=== PATIENT | male | born 1955 | race Caucasian/White ===

== ENCOUNTER → 2016-07-18 | Outpatient (CLI) | payer BC, OTHER ==
--- NOTE | 2016-07-18 14:28 | REP ---
Clinical: Pain. Technique: AP, lateral, bilateral oblique views of the right hand. Findings: Moderate osteoarthritic degenerative changes at the first and second carpometacarpal joints noted. No acute fracture dislocation. Impression: Arthritic changes primarily involving the first and second carpometacarpal joints Signed by Jerad Mendenhall MD 07/18/2016 02:19 P
--- NOTE | 2016-07-18 14:29 | REP ---
Clinical: Pain. Technique: AP, lateral, bilateral oblique views of the right hand. Findings: Moderate degenerative changes at the first and second carpometacarpal joints appreciated subtle cystic changes at the heads of the third and fourth carpal bones as well as the head of the fourth proximal phalanx may reflect underlying arthritides. No significant osteophytosis. No acute fracture dislocation. Impression: Suspected degenerative changes as noted above. Signed by Jerad Mendenhall MD 07/18/2016 02:21 P
== END ==
LOC: M RAD 13:49
PROVIDERS: ATTEND Physician Assistant
DX: M19.041 Primary osteoarthritis, right hand (principal)

== ENCOUNTER → 2017-08-15 | Outpatient (REF) | payer OTHER ==
[2017-08-15 12:25] LABS: ALBUMIN 3.6 GM/DL (3.2-5.2); ALBUMIN/GLOBULIN RATIO 1.13 (1.00-1.93); ALKALINE PHOSPHATASE 74 U/L (45-117); ALT/SGPT 25 U/L (12-78); ANION GAP 6 MEQ/L (8-16); AST/SGOT 17 U/L (7-37); BILIRUBIN,TOTAL 0.5 MG/DL (0.2-1.0); BLOOD UREA NITROGEN 15 MG/DL (7-18); CALCIUM LEVEL 8.9 MG/DL (8.8-10.2); CARBON DIOXIDE LEVEL 31 MEQ/L (21-32); CHLORIDE LEVEL 106 MEQ/L (98-107); CHOLESTEROL LEVEL 192 MG/DL (<200); CHOLESTEROL RISK RATIO 3.254 (<5); CREATININE FOR GFR 0.96 MG/DL (0.70-1.30); GLOMERULAR FILTRATION RATE > 60.0 (>49); GLUCOSE, FASTING 84 MG/DL (70-100); HDL CHOLESTEROL 59 MG/DL (>40); LDL CHOLESTEROL 115.6 MG/DL (<100); NON-HDL-C 133 MG/DL; POTASSIUM SERUM 4.4 MEQ/L (3.5-5.1); SODIUM LEVEL 143 MEQ/L (136-145); TOTAL PROTEIN 6.8 GM/DL (6.4-8.2); TRIGLYCERIDES LEVEL 87 MG/DL (<150)
== END ==
LOC: M SFHCCLAY 07:39
DX: I10 Essential (primary) hypertension (principal); N40.1 Benign prostatic hyperplasia with lower urinary tract symptoms; N52.9 Male erectile dysfunction, unspecified; E78.5 Hyperlipidemia, unspecified

== ENCOUNTER → 2018-02-05 | Outpatient (REF) | payer OTHER ==
[2018-02-05 15:08] LABS: BASO # 0.1 10^3/uL (0.0-0.2); BASO % 1.1 % (0.0-1.0); EOS # 0.2 10^3/uL (0.0-0.50); EOS % 3.1 % (0.0-3.0); HEMATOCRIT 46.3 % (42.0-52.0); HEMOGLOBIN 15.3 g/dl (13.5-17.5); IMMATURE GRANULOCYTE % 0.5 % (0-3.0); LYMPH # 1.3 10^3/uL (1.5-4.5); LYMPH % 20.1 % (24.0-44.0); MEAN CORPUSCULAR HEMOGLOBIN 31.1 pg (27.0-33.0); MEAN CORPUSCULAR VOLUME 94.1 fl (80.0-96.0); MONO # 0.8 10^3/uL (0.0-0.8); MONO % 11.8 % (0.0-5.0); NEUTROPHILS # 4.1 10^3/uL (1.8-7.7); NEUTROPHILS % 63.4 % (36.0-66.0); PLATELET COUNT, AUTOMATED 258 10^3/uL (150-450); RED BLOOD COUNT 4.92 10^6/uL (4.30-6.10); RED CELL DISTRIBUTION WIDTH 13.4 % (11.5-14.5); WHITE BLOOD COUNT 6.5 10^3/uL (4.0-10.0)
[2018-02-05 15:34] LABS: ALBUMIN 3.6 GM/DL (3.2-5.2); ALBUMIN/GLOBULIN RATIO 1.13 (1.00-1.93); ALKALINE PHOSPHATASE 59 U/L (45-117); ALT/SGPT 28 U/L (12-78); ANION GAP 6 MEQ/L (8-16); AST/SGOT 18 U/L (7-37); BILIRUBIN,TOTAL 0.4 MG/DL (0.2-1.0); BLOOD UREA NITROGEN 20 MG/DL (7-18); CALCIUM LEVEL 9.2 MG/DL (8.8-10.2); CARBON DIOXIDE LEVEL 28 MEQ/L (21-32); CHLORIDE LEVEL 108 MEQ/L (98-107); CHOLESTEROL LEVEL 223 MG/DL (<200); CREATININE FOR GFR 1.02 MG/DL (0.70-1.30); FREE T4 0.97 NG/DL (0.76-1.46); GLOMERULAR FILTRATION RATE > 60.0 (>49); GLUCOSE, FASTING 95 MG/DL (70-100); HDL CHOLESTEROL 65 MG/DL (>40); LDL CHOLESTEROL 144 MG/DL (<100); NON-HDL-C 158 MG/DL; POTASSIUM SERUM 4.2 MEQ/L (3.5-5.1); PSA SCREENING 0.72 NG/ML (< 4.0); SODIUM LEVEL 142 MEQ/L (136-145); TOTAL PROTEIN 6.8 GM/DL (6.4-8.2); TRIGLYCERIDES LEVEL 69 MG/DL (<150)
== END ==
LOC: M SFHCCLAY 07:08
DX: I10 Essential (primary) hypertension (principal); N52.9 Male erectile dysfunction, unspecified; N40.1 Benign prostatic hyperplasia with lower urinary tract symptoms; R79.89 Other specified abnormal findings of blood chemistry; E78.5 Hyperlipidemia, unspecified

== ENCOUNTER → 2018-02-26 | Outpatient (REF) | payer OTHER ==
[2018-02-26 12:10] LABS: BASO # 0.1 10^3/uL (0.0-0.2); EOS # 0.1 10^3/uL (0.0-0.50); HEMATOCRIT 45.2 % (42.0-52.0); HEMOGLOBIN 15.5 g/dl (13.5-17.5); IMMATURE GRANULOCYTE % 0.3 % (0-3.0); LYMPH # 1.1 10^3/uL (1.5-4.5); MEAN CORPUSCULAR HEMOGLOBIN 31.1 pg (27.0-33.0); MEAN CORPUSCULAR HGB CONC 34.3 g/dl (32.0-36.5); MEAN CORPUSCULAR VOLUME 90.6 fl (80.0-96.0); MONO # 0.7 10^3/uL (0.0-0.8); MONO % 10.3 % (0.0-5.0); NEUTROPHILS % 71.4 % (36.0-66.0); PLATELET COUNT, AUTOMATED 253 10^3/uL (150-450); RED BLOOD COUNT 4.99 10^6/uL (4.30-6.10); RED CELL DISTRIBUTION WIDTH 13.2 % (11.5-14.5)
[2018-02-26 13:13] LABS: ERYTHROCYTE SEDIMENTATION RATE 4 mm/hr (0-20)
[2018-02-26 13:49] LABS: C REACTIVE PROTEIN QUANTITATIV < 0.30 MG/DL (0.00-0.30)
[2018-02-26 13:49] LABS: RHEUMATOID FACTOR QUANT < 10.0 IU/ML (<15.0)
[2018-02-28 00:06] LABS: ANTINUCLEAR ANTIBODIES DIRECT Negative (Negative); Lyme Disease IgG/IgM Antibodie <0.91 ISR (0.00-0.90); Lyme Disease IgM Ab Quantitati <0.80 index (0.00-0.79)
== END ==
LOC: M LABDRAW1 11:58
DX: M16.11 Unilateral primary osteoarthritis, right hip (principal)

== ENCOUNTER → 2018-04-06 | Outpatient (REF) | payer OTHER ==
[2018-04-06 13:40] LABS: RHEUMATOID FACTOR QUANT < 10.0 IU/ML (<15.0)
[2018-04-06 13:40] LABS: C REACTIVE PROTEIN QUANTITATIV 0.57 MG/DL (0.00-0.30)
[2018-04-06 13:41] LABS: BASO # 0.1 10^3/uL (0.0-0.2); BASO % 1.1 % (0.0-1.0); EOS # 0.1 10^3/uL (0.0-0.50); EOS % 1.2 % (0.0-3.0); HEMATOCRIT 47.8 % (42.0-52.0); HEMOGLOBIN 15.8 g/dl (13.5-17.5); IMMATURE GRANULOCYTE % 0.3 % (0-3.0); LYMPH # 1.1 10^3/uL (1.5-4.5); LYMPH % 15.2 % (24.0-44.0); MEAN CORPUSCULAR HEMOGLOBIN 30.8 pg (27.0-33.0); MEAN CORPUSCULAR HGB CONC 33.1 g/dl (32.0-36.5); MEAN CORPUSCULAR VOLUME 93.2 fl (80.0-96.0); MONO # 0.8 10^3/uL (0.0-0.8); MONO % 10.6 % (0.0-5.0); NEUTROPHILS # 5.3 10^3/uL (1.8-7.7); NEUTROPHILS % 71.6 % (36.0-66.0); PLATELET COUNT, AUTOMATED 292 10^3/uL (150-450); RED BLOOD COUNT 5.13 10^6/uL (4.30-6.10); RED CELL DISTRIBUTION WIDTH 13.2 % (11.5-14.5); WHITE BLOOD COUNT 7.4 10^3/uL (4.0-10.0)
[2018-04-06 14:02] LABS: ERYTHROCYTE SEDIMENTATION RATE 3 mm/hr (0-20)
[2018-04-08 00:06] LABS: ANTINUCLEAR ANTIBODIES DIRECT Negative (Negative); Lyme Disease IgG/IgM Antibodie <0.91 ISR (0.00-0.90); Lyme Disease IgM Ab Quantitati <0.80 index (0.00-0.79)
== END ==
LOC: M LABDRAW1 13:10
DX: M16.11 Unilateral primary osteoarthritis, right hip (principal)

== ENCOUNTER → 2018-08-11 | Outpatient (CLI) | payer BC ==
--- NOTE | 2018-08-12 03:27 | REP ---
Clinical: Primary hypertension . Comparison: None . Technique: PA and lateral. Findings: The mediastinum and cardiac silhouette are normal. The lung poole are clear and without acute consolidation, effusion, or pneumothorax. The skeletal structures are intact and normal. Impression: 1. No acute cardiopulmonary process.
== END ==
LOC: M CLY 08:35
PROVIDERS: ATTEND Nurse Practitioner Family
DX: I10 Essential (primary) hypertension (principal)

== ENCOUNTER 2018-10-06 10:52 | Inpatient (IN) | payer BC, OTHER ==
--- NOTE | 2018-09-29 14:04 | HPE ---
DATE OF ADMISSION: 10/06/2018 HISTORY OF PRESENT ILLNESS: This is a pleasant 63-year-old male with continuing symptomatic left knee osteoarthritis. He has consented for left total knee arthroplasty per Dr. Kiko Carlin. Medical optimization was achieved per CALIN Blackmon. X-rays are consistent with advanced osteoarthritis. ALLERGIES: None known to drugs. MEDICATIONS LIST INCLUDES: - lisinopril 20 mg tablet one orally once a day - aspirin 81 mg tablet chewable one orally once a day - chlorthalidone 25 mg tablet, 1/2 tablet orally once a day. - Cialis 5 mg tablet 1 tablet orally once a day. - atorvastatin calcium 20 mg tablet 1 tablet orally once a day. - lisinopril 20 mg tablet 1 tablet orally once a day. PAST MEDICAL HISTORY INCLUDES: Bilateral knee osteoarthritis. Right hip osteoarthritis. Hypertension. Hyperlipidemia. Gastroesophageal reflux disease (GERD). Erectile dysfunction (ED). Shingles. Benign prostatic hypertrophy (BPH). PAST SURGICAL HISTORY: Colonoscopy Dr. Alvarez 2007. Right knee arthroscopic Dr. Barrientos 1988. Right ankle tendinopathy repair Dr. Mejia . Colonoscopy with polyps removed 2012. FAMILY HISTORY: Father, myocardial infarction (PA) diagnosed with heart disease. Mother 80 years old, macular degeneration, chronic obstructive pulmonary disease (COPD). Three brothers, one sister healthy. Three sons, one daughter healthy. SOCIAL HISTORY: He is chewing tobacco 1/2 can per day. No vapor or cigarettes. Denies illicit drugs. REVIEW OF SYSTEMS: Denies chest pain, shortness of breath, dyspnea on exertion, fever, chills, malaise, upper respiratory or urinary tract symptoms. PHYSICAL EXAMINATION: Blood pressure 130/79, pulse 70, temperature 97.8, height 74 inches, weight 240 pounds 1 ounce. BMI 30.80. Respiration 16. He ambulates slow steady without overt antalgia. He has favoring about the right lower extremity. Left knee varus osteoarthritic line with positive medial joint line tenderness. Crepitance is noted on the knee through flexion/extension 0 past 90. Bilateral lower extremities are intact. Benign noninfectious looking. Bowels soft, nontender times four. Chest rises symmetrically. Regular rate and rhythm. Lungs: Clear to auscultation. Neck: Supple. Normocephalic. Labs were reviewed acquired 08/31/2018: BUN was 24, anion gap 5. Prothrombin time 14.5, blood type O positive, AB screen negative, GFR greater than 60. EKG sinus rhythm, nonspecific intraventricular conduction. Though I cannot read who signed off on it, it was through [employer] by Felice and signed off on 08/11/2018. Chest x-ray: Unremarkable, service date 08/11/[address] Mendenhall. No acute cardiopulmonary process. IMPRESSION: 1. Symptomatic left knee osteoarthritis. 2. Patient consented for left total knee arthroplasty per Dr. Kiko Carlin. 3. Medical optimization per CALIN Blackmon. 4. On-call to operating room (OR) 2 grams IV Kefzol in OR. 5. Sequential compression devices (SCDs) and thromboembolic deterrent stockings (TEDS) in OR. MEDICATIONS INDICATION 98. MTDD
[~2018-10-06] VITALS: Ht 188 cm; Wt 108.4 kg
[~2018-10-06 10:52] MED LIST: ASPI81TA85 PO; ATOR1TAB21 PO; CHLO125TA PO; CIAL5TAB PO; LISI-538 PO; LR 1,000 ML IV ONE
[2018-10-06] MEDS ORDERED: LIDOCAINE 2% INJ 100 MG/5 ML SDV (FOR ANES.) As Ordered ONE (11:31)
[2018-10-06] MEDS ORDERED: PROPOFOL 200 MG/20 ML VIAL As Ordered ONE ×4 (11:31→15:25)
[2018-10-06] MEDS ORDERED: ONDANSETRON 4MG/2ML VIAL (J2405) As Ordered ONE (11:32)
[2018-10-06] MEDS ORDERED: MIDAZOLAM INJ 2 MG/2 ML VIAL (J2250) As Ordered ONE ×2 (11:33→12:43)
[2018-10-06] MEDS ORDERED: VANCOMYCIN 1000 MG/20 ML VIAL (J3370) As Ordered ONE (12:09)
--- NOTE | 2018-10-06 12:13 | IPN ---
DATE: 10/06/2018 Patient seen and examined preoperatively. He wished to go ahead with a left total knee arthroplasty. He understands the nature of procedure, the risks of bleeding, infection, damage to nerves, vessels, persistent pain, wear loosening, blood clots, medical problems, , among others. He wished to proceed. Preop clearance was obtained.
[2018-10-06] MEDS ORDERED: VANCOMYCIN HCL 1,000 MG, VIAL MATE ADAPTER 1 EACH in D5W 250 ML IV ONE (12:30)
[2018-10-06] MEDS ORDERED: fentaNYL 100 MCG/2 ML INJECTION (J3010) As Ordered ONE (12:43)
[2018-10-06] MEDS ORDERED: BUPIVACAINE HCL 0.25% 10 ML VIAL As Ordered ONE (12:55)
[2018-10-06] MEDS ORDERED: BUPIVACAINE HCL 0.25% 30 ML VIAL As Ordered ONE (12:56)
[2018-10-06] MEDS ORDERED: TRANEXAMIC ACID 100 MG/ML 10ML VIAL As Ordered ONE (12:59)
[2018-10-06] MEDS ORDERED: ceFAZolin 1GM INJ (J0690 PER 500MG) As Ordered ONE (12:59)
[2018-10-06] MEDS ORDERED: EPINEPHrine INJ 1 MG/ML 1ML AMP As Ordered ONE (13:00)
[2018-10-06] MEDS ORDERED: BUPIVACAINE LIPOSOME/PF 1.3% 20ML VIAL (13.3MG/ML)(EXPAREL)(C9290 PER1MG) As Ordered ONE (13:00)
[2018-10-06] MEDS ORDERED: ePHEDrine SULFATE 25 MG/5 ML(5MG/ML) SYRINGE As Ordered ONE (14:28)
[2018-10-06] MEDS ORDERED: BUPIVACAINE HCL 0.5% 30 ML VIAL As Ordered ONE (14:52)
[2018-10-06] MEDS ORDERED: LIDOCAINE 1% MDV 20ML VIAL ONE (15:44)
[2018-10-06] MEDS ORDERED: dexameTHASONE 10 MG/1 ML VIAL PRES.FREE (J1100) ONE (15:44)
[2018-10-06] MEDS ORDERED: METOCLOPRAMIDE INJ 10MG/2ML VIAL (J2765) IV PRN (16:15)
[2018-10-06] MEDS ORDERED: FLEET ENEMA PR PRN (16:15)
[2018-10-06] MEDS ORDERED: ACETAMINOPHEN TAB 650MG DOSE (2X325MG) PO PRN (16:15)
[2018-10-06] MEDS ORDERED: fentaNYL 100 MCG/2 ML INJECTION (J3010) IV PRN (16:15)
[2018-10-06] MEDS ORDERED: LR 1,000 ML IV SCH (16:15)
[2018-10-06] MEDS ORDERED: oxyCODONE 5MG TAB PO PRN (16:15)
[2018-10-06] MEDS: LR 1,000 ML IV SCH (16:15)
[2018-10-06] MEDS ORDERED: PROMETHAZINE INJ 25 MG/ML VIAL (J2550) IV PRN (16:15)
[2018-10-06] MEDS ORDERED: ONDANSETRON 4MG/2ML VIAL (J2405) IV PRN (16:15)
[2018-10-06] MEDS ORDERED: MORPHINE 4 MG/ML 1ML VIAL/SYRINGE (J2270) IV PRN ×2 (16:15)
--- NOTE | 2018-10-06 16:47 | REP ---
Portable left knee two views: There is a total knee arthroplasty with the components tightly applied and in satisfactory positions alignment. There is an intra-articular postsurgical air-fluid level. Skin paty are incidentally identified. Electronically Signed by Rj Best MD 10/06/2018 04:38 P
--- NOTE | 2018-10-06 18:17 | RO ---
DATE OF PROCEDURE: 10/06/2018 PREOPERATIVE DIAGNOSIS: Left knee osteoarthritis. POSTOPERATIVE DIAGNOSIS: Left knee osteoarthritis. PROCEDURE: Left total knee arthroplasty using an Attune rotating platform posterior stabilized size 7 femur, size 6 tibial tray, 7 polyethylene, and a 38 patellar button. SURGEON: Dr. Kiko Carlin LASER ENGRAVER: Ildefonso Morrow ANESTHESIA: Spinal. ESTIMATED BLOOD LOSS: Less than 50 mL. COMPLICATIONS: None. INDICATIONS: This is a 63-year-old gentleman who has had gradually worsening left knee pain with severe arthritis. He wished to go ahead with knee replacement. He understood the nature and risk. Preop clearance was obtained. DESCRIPTION OF PROCEDURE: The patient was taken to the operating room, placed in the supine position after spinal anesthesia was induced. Left lower extremity was prepped and draped in the usual sterile fashion. Tourniquet was inflated after a time-out was performed. I then created a longitudinal incision over the anterior aspect of the knee and sharp dissection was carried down through subcutaneous tissue. I then performed a medial parapatellar arthrotomy per routine. He did have fairly extensive prepatellar bursitis and a large but empty sac that I excised just for concern that that would be a recurring issue. I did this with cautery and a scissor. I then everted the patella, flexed the knee up using the canal initiating reamer on the femoral side. The femoral guide was then inserted and set at 5 of valgus, 9 mm cut. This was pinned in place. The distal femoral cut was made as I protected soft tissues. I then sized the femur to be a 7, and the cutting block was secured, the remaining cuts were made. I also made the sulcus cut. I then prepared the tibia. The tibial alignment guide was placed, appropriate amount of slope and valgus and then pinned in place at 4 mm off the low side. I checked the external alignment and then made this proximal tibia cut. I then used the insurance office manager to remove soft tissue and osteophytes from either side of the knee. I did do a little bit more extensive medial release. I then tried spacer blocks and felt that it was a little too tight with a 6, and I decided actually to take an extra 2 mm off the tibial side, probably because the bone was so dense throughout the case that I felt that the proximal medial tibia may have skived a little bit with the saw blade, so I made this second cut, very pleased with the cut. Soft tissue balance was excellent at this point. A 7 spacer seemed to be very appropriate. I then prepared the tibia with the drill and broach. Trial components were placed, posterior cruciate ligament (PCL) was still intact, but I was not pleased with the roll back. Once we put the trial components in, the tibia was shifting forward, and I felt that the PCL was too tight, so I elected to go with a posterior stabilized knee. So the box cut was then made on the femoral side and trial components were then placed and the size 7 polyethylene, posterior stabilized and was very pleased with the alignment and position of these components. Excellent soft tissue balance. Excellent range of motion. Excellent roll back. I then freehand cut the patella removing about 7 mm of bone, sized to be a 38. Drill holes were placed in the femur and the patella, and the grants assistant prepared the bone cement in the modern technique as I removed the components, irrigated copiously, placed the Exparel in the deep tissues. Dried the bony surfaces, cemented on all three components, placed in the polyethylene, bring the knee out in extension, removing excess bone cement. TXA solution was placed deep in the wound and then copious irrigation was again performed. I had to carefully irrigate and dried the bony surfaces prior to cementing. Once the cement had hardened, I removed the patellar clamp. The patella tracked very nicely. I closed the deep layer with a combination of #1 Vicryl suture and a running Stratafix suture, closed the subcu with #2-0 Vicryl, the skin with paty. Sterile dressing was applied. Tourniquet was deflated. He was taken to the recovery room in stable condition. There were no known complications. The plan will be routine postop. The grants assistant was instrumental in holding retractors and assisted in mixing the bone cement. He made one of the bone cuts under my direct supervision and assisting in wound closure.
[2018-10-06] MEDS: PERCOCET 5MG/325MG TAB PO PRN (18:31)
[2018-10-06 18:45] VITALS: BP 147/100
[2018-10-06 19:15] VITALS: BP 147/98
[2018-10-06 23:15] VITALS: BP 151/86
--- NOTE | 2018-10-06 23:27 | IPNPDOC ---
Subjective Date Seen The patient was seen on 10/06/18. Subjective Chief Complaint/HPI Mr. Martínez is status post left total knee arthroplasty. His only complaint to me is that the spinal anesthesia has worn off and he is beginning to feel the ache in his leg now. Constitutional: Denies: Chills, Fever Pulmonary: Denies: Dyspnea, Cough Cardiovascular: Denies: Chest Pain, Palpitations Gastrointestinal: Denies: Nausea, Vomiting Psych: Reports: Mood Normal Objective Physical Examination General Exam: Positive: Alert, Cooperative (laying in his bed when I entered the room), No Acute Distress Eye Exam: Positive: Conjunctiva & lids normal; Negative: Sclera icteric ENT Exam: Positive: Mucous membr. moist/pink Neck Exam: Negative: Lymphadenopathy Chest Exam: Positive: Clear to auscultation, Normal air movement Heart Exam: Positive: Rate Normal, Normal S1, Normal S2; Negative: Murmurs Abdomen Exam: Positive: Normal bowel sounds, Soft; Negative: Tenderness Extremity Exam: Positive: Other (left knee bandage is clean dry and intact) Psych Exam: Positive: Mood NL, Oriented x 3 A-FIB/CHADSVASC A-FIB History Current/History of A-Fib/PAF?: No Assessment /Plan Problems (1) Status post total left knee replacement Problem Text: Today's the day of surgery. He is admitted under orthopedics who manage his: pain control, rehabilitation, bowel care, anticoagulation. (2) Hypertension Status: Chronic Response to Treatment: Stable Discussed With: Patient Problem Specific Plan: Monitor Clinically Problem Text: His blood pressure is running a little high after his surgery. I resumed his home medications starting tomorrow morning. Monitor. (3) Hyperlipidemia Status: Chronic Problem Text: I resumed his statin. Plan/VTE VTE Prophylaxis Ordered?: Yes (anticoagulated per orthopedics) VS, I&O, 24H, Fishbone Vital Signs/I&O Vital Signs Date Time Temp Pulse Resp B/P (MAP) Pulse Ox O2 Delivery O2 Flow Rate FiO2 10/06/18 21:40 20 10/06/18 19:15 98.8 60 147/98 (114) 98 10/06/18 16:10 2 Donny Farias MD October 06, 2018 11:27 pm
[2018-10-07] MEDS: PERCOCET 5MG/325MG TAB PO PRN ×3 (00:42→12:25)
[2018-10-07] MEDS ORDERED: VANCOMYCIN HCL 1,000 MG, VIAL MATE ADAPTER 1 EACH in D5W 250 ML IV ONE (01:00)
[2018-10-07 03:15] VITALS: BP 133/80
[2018-10-07] MEDS: LR 1,000 ML IV SCH (05:12)
[2018-10-07 05:46] LABS: HEMATOCRIT 39.5 % (42.0-52.0); HEMOGLOBIN 13.1 g/dl (13.5-17.5); MEAN CORPUSCULAR HEMOGLOBIN 30.1 pg (27.0-33.0); MEAN CORPUSCULAR HGB CONC 33.2 g/dl (32.0-36.5); MEAN CORPUSCULAR VOLUME 90.8 fl (80.0-96.0); PLATELET COUNT, AUTOMATED 268 10^3/uL (150-450); RED BLOOD COUNT 4.35 10^6/uL (4.30-6.10); WHITE BLOOD COUNT 12.3 10^3/uL (4.0-10.0)
[2018-10-07] MEDS ORDERED: ONDANSETRON 4 MG TAB (S0181) PO PRN (06:00)
[2018-10-07 06:19] LABS: BLOOD UREA NITROGEN 14 MG/DL (7-18); CALCIUM LEVEL 8.1 MG/DL (8.8-10.2); CARBON DIOXIDE LEVEL 27 MEQ/L (21-32); CHLORIDE LEVEL 105 MEQ/L (98-107); CREATININE FOR GFR 0.99 MG/DL (0.70-1.30); GLOMERULAR FILTRATION RATE > 60.0 (>49); GLUCOSE, FASTING 104 MG/DL (70-100); POTASSIUM SERUM 3.7 MEQ/L (3.5-5.1); SODIUM LEVEL 138 MEQ/L (136-145)
[2018-10-07 07:15] VITALS: BP 144/92
[2018-10-07] MEDS ORDERED: XARE10TA PO (07:15)
[2018-10-07] MEDS ORDERED: PERC5TAB12 PO (07:15)
--- NOTE | 2018-10-07 07:45 | IPNPDOC ---
Subjective Date Seen The patient was seen on 10/07/18. Subjective Chief Complaint/HPI Patient reports to be feeling well. He walked the halls yesterday. He reports some pain in knee and did not sleep the best last night. He is ready for PT today. He offers no concerns. Constitutional: Denies: Chills, Fever Pulmonary: Denies: Dyspnea, Cough, Pleuritic Chest Pain Cardiovascular: Denies: Chest Pain, Palpitations, Orthopnea, Edema Gastrointestinal: Denies: Nausea, Vomiting, Constipation Psych: Reports: Mood Normal Objective Physical Examination General Exam: Positive: Alert, Cooperative (laying in his bed when I entered the room), No Acute Distress Eye Exam: Positive: Conjunctiva & lids normal; Negative: Sclera icteric ENT Exam: Positive: Mucous membr. moist/pink Neck Exam: Negative: Lymphadenopathy Chest Exam: Positive: Clear to auscultation, Normal air movement Heart Exam: Positive: Rate Normal, Normal S1, Normal S2; Negative: Murmurs Abdomen Exam: Positive: Normal bowel sounds, Soft; Negative: Tenderness Extremity Exam: Positive: Other (left knee bandage is clean dry and intact) Psych Exam: Positive: Mood NL, Oriented x 3 A-FIB/CHADSVASC A-FIB History Current/History of A-Fib/PAF?: No Assessment /Plan Problems (1) Status post total left knee replacement Problem Text: 10/07/18: Post op Day #1. PT scheduled for today. Ortho will continue to manage his pain, rehab, bowel care and anticoagulation Today's the day of surgery. He is admitted under orthopedics who manage his: pain control, rehabilitation, bowel care, anticoagulation. (2) Hypertension Status: Chronic Response to Treatment: Stable Discussed With: Patient Problem Specific Plan: Monitor Clinically Problem Text: 10/07/18: Pressures stable. He will resume his home medications today. We will continue to monitor His blood pressure is running a little high after his surgery. I resumed his home medications starting tomorrow morning. Monitor. (3) Hyperlipidemia Status: Chronic Problem Text: I resumed his statin. Plan/VTE VTE Prophylaxis Ordered?: Yes (anticoagulated per orthopedics) Plan Family Medicine Attending Note: I saw and examined Mr. Martínez, discussed with Jemma Ellison DNP. Agree with her note as documented. He reports he had a tough night, but is ready to engage in therapy. 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) VS, I&O, 24H, Fishbone Vital Signs/I&O Vital Signs Date Time Temp Pulse Resp B/P (MAP) Pulse Ox O2 Delivery O2 Flow Rate FiO2 10/07/18 07:15 97.9 71 18 144/92 (109) 96 10/06/18 16:10 2 I&O- Last 24 Hours up to 6 AM 10/07/18 06:00 Intake Total 3700 ml Output Total 1100 ml Balance 2600 ml Laboratory Data 24H LABS Laboratory Tests 2 10/07/18 05:34: Nucleated Red Blood Cells % (auto) 0.0, Anion Gap 6L, Glomerular Filtration Rate > 60.0, Blood Urea Nitrogen 14, Creatinine 0.99, Sodium Level 138, Potassium L evel 3.7, Chloride Level 105, Carbon Dioxide Level 27, Calcium Level 8.1L CBC/BMP Laboratory Tests 10/07/18 05:34 Red Blood Count 4.35, Mean Corpuscular Volume 90.8, Mean Corpuscular Hemoglobin 30.1, Mean Corpuscular Hemoglobin Concent 33.2, Red Cell Distribution Width 13.2, Calcium Level 8.1 L JEMMA ELLISON October 07, 2018 7:45 am Donny Farias MD October 07, 2018 9:10 pm
[2018-10-07 08:57] VITALS: BP 144/92
[2018-10-07] MEDS ORDERED: MOM 30ML SUSPENSION UDC PO SCH (09:00)
[2018-10-07] MEDS ORDERED: MIRALAX *UNIT DOSE* 17GM PACKET PO SCH (09:00)
[2018-10-07] MEDS ORDERED: ATORVASTATIN 20 MG TAB PO SCH (09:00)
[2018-10-07] MEDS ORDERED: CHLORTHALIDONE 12.5MG PER 1/2 TABLET PO SCH (09:00)
[2018-10-07] MEDS ORDERED: LISINOPRIL 20 MG TAB PO SCH (09:00)
[2018-10-07] MEDS ORDERED: RIVAROXABAN 10 MG TAB (XARELTO) PO SCH (18:00)
== END 2018-10-07 13:00 | disposition home or self-care (01) | DRG 302 ==
LOC: M OR 10:52 → M MS5PR 18:05
PROVIDERS: ADMIT Orthopaedic Surgery; ATTEND Orthopaedic Surgery
PROC: 0SRD0J9 Replacement of Left Knee Joint with Synthetic Substitute, Cemented, Open Approach (ICD-10-PCS; principal; 2018-10-06 13:30)
DX: M17.12 Unilateral primary osteoarthritis, left knee (principal); I10 Essential (primary) hypertension; Z68.30 Body mass index [BMI] 30.0-30.9, adult; Z79.899 Other long term (current) drug therapy; Z79.82 Long term (current) use of aspirin; E78.5 Hyperlipidemia, unspecified; N40.0 Benign prostatic hyperplasia without lower urinary tract symptoms; N52.9 Male erectile dysfunction, unspecified; K21.9 Gastro-esophageal reflux disease without esophagitis; F17.220 Nicotine dependence, chewing tobacco, uncomplicated

== ENCOUNTER → 2019-08-05 | Outpatient (REF) | payer OTHER ==
[~2019-08-05] MED LIST changes: -LR 1,000 ML IV ONE; +PERC5TAB12 PO; +XARE10TA PO
[2019-08-05 13:06] LABS: BASO # 0.1 10^3/uL (0.0-0.2); BASO % 1.3 % (0.0-1.0); EOS # 0.3 10^3/uL (0.0-0.5); EOS % 3.7 % (0.0-3.0); HEMATOCRIT 48.5 % (42.0-52.0); HEMOGLOBIN 15.8 g/dl (13.5-17.5); LYMPH # 1.8 10^3/uL (1.5-5.0); LYMPH % 25.6 % (24.0-44.0); MEAN CORPUSCULAR HEMOGLOBIN 30.5 pg (27.0-33.0); MEAN CORPUSCULAR HGB CONC 32.6 g/dl (32.0-36.5); MEAN CORPUSCULAR VOLUME 93.6 fl (80.0-96.0); MONO # 0.9 10^3/uL (0.0-0.8); NEUTROPHILS # 4.1 10^3/uL (1.5-8.5); NEUTROPHILS % 57.3 % (36.0-66.0); PLATELET COUNT, AUTOMATED 259 10^3/uL (150-450); RED BLOOD COUNT 5.18 10^6/uL (4.30-6.10); WHITE BLOOD COUNT 7.1 10^3/uL (4.0-10.0)
[2019-08-05 13:33] LABS: HEMOGLOBIN A1c 5.8 %
[2019-08-05 13:43] LABS: ALBUMIN 3.6 GM/DL (3.2-5.2); ALT/SGPT 24 U/L (12-78); BILIRUBIN,TOTAL 0.3 MG/DL (0.2-1.0); BLOOD UREA NITROGEN 26 MG/DL (7-18); CALCIUM LEVEL 9.3 MG/DL (8.8-10.2); CARBON DIOXIDE LEVEL 30 MEQ/L (21-32); CHLORIDE LEVEL 106 MEQ/L (98-107); CHOLESTEROL LEVEL 175 MG/DL (<200); CHOLESTEROL RISK RATIO 3.181 (<5); CREATININE FOR GFR 1.04 MG/DL (0.70-1.30); FREE T4 1.09 NG/DL (0.76-1.46); GLOMERULAR FILTRATION RATE > 60.0 (>49); GLUCOSE, FASTING 76 MG/DL (70-100); HDL CHOLESTEROL 55 MG/DL (>40); LDL CHOLESTEROL 99 MG/DL (<100); NON-HDL-C 120 MG/DL; POTASSIUM SERUM 4.8 MEQ/L (3.5-5.1); SODIUM LEVEL 139 MEQ/L (136-145); TOTAL PROTEIN 6.7 GM/DL (6.4-8.2); TRIGLYCERIDES LEVEL 107 MG/DL (<150)
== END ==
LOC: M SFHCCLAY 09:14
PROVIDERS: ATTEND Nurse Practitioner Family
DX: Z13.1 Encounter for screening for diabetes mellitus (principal); I10 Essential (primary) hypertension; N40.1 Benign prostatic hyperplasia with lower urinary tract symptoms; N52.9 Male erectile dysfunction, unspecified; E78.5 Hyperlipidemia, unspecified
CPT/HCPCS: 80053; 80061; 83036; 84439; 84443; 85025; G0103

== ENCOUNTER → 2019-10-01 | Outpatient (CLI) | payer BC, OTHER ==
--- NOTE | 2019-10-06 06:48 | SLEEPHOME ---
DATE OF STUDY: 10/01/2019 ORDERED BY: Dr. Aguirre Diagnostic home sleep testing was performed due to concern for the obstructive sleep apnea syndrome in this patient with a history of excessive somnolence, observed apnea and nonrestorative sleep who has comorbidities of hypertension and obesity. For testing, a nocturnal T3 respiratory monitoring device was used. Continuous record was made of pulse, oxygen saturation, airflow, chest and abdominal strain and body position. 9 hours and 59 minutes of data were reviewed. There were 9 hours and 12 minutes marked as time in bed. During the interval marked time in bed, there were 676 respiratory events identified of 10 seconds in duration or greater for a respiratory event index of 73.5. The events were primarily obstructive, however, 136 mixed and central apneas were also identified. Baseline pulse rate 68, pulse rate ranged 48-114. Baseline saturation 94%, saturations fell to 87%. Testing was performed in both the supine and nonsupine positions. IMPRESSION: Abnormal home sleep testing with repetitive respiratory events and oxygen desaturations to 87% with a respiratory event index of 73.5 is consistent with severe obstructive sleep apnea syndrome. RECOMMENDATION: The patient should be encouraged to undergo formal sleep evaluation. Given the occurrence of central and mixed apneas, use of a bilevel pressure device may be necessary and backup rate may be needed.
== END ==
LOC: M SLEEP HO 11:00
PROVIDERS: ATTEND Internal Medicine Pulmonary Disease
DX: G47.30 Sleep apnea, unspecified (principal)

== ENCOUNTER → 2020-02-28 | Outpatient (CLI) | payer BC, OTHER ==
[~2020-02-28] MED LIST changes: +ASPI81TA26 PO; -ASPI81TA85 PO; +ASPI81TA86 PO; +KEFL500C17 PO; +MS C15TA8 PO
[2020-02-28 09:32] LABS: HEMATOCRIT 46.6 % (42.0-52.0); HEMOGLOBIN 15.3 g/dl (13.5-17.5); MEAN CORPUSCULAR HEMOGLOBIN 30.5 pg (27.0-33.0); MEAN CORPUSCULAR HGB CONC 32.8 g/dl (32.0-36.5); MEAN CORPUSCULAR VOLUME 92.8 fl (80.0-96.0); PLATELET COUNT, AUTOMATED 231 10^3/uL (150-450); RED BLOOD COUNT 5.02 10^6/uL (4.30-6.10); WHITE BLOOD COUNT 6.2 10^3/uL (4.0-10.0)
[2020-02-28 09:44] LABS: INR 1.03; PARTIAL THROMBOPLASTIN TIME 26.3 SECONDS (24.2-38.5); PROTHROMBIN TIME 13.7 SECONDS (12.5-14.3)
[2020-02-28 09:56] LABS: ALBUMIN 3.5 GM/DL (3.2-5.2); ALT/SGPT 25 U/L (12-78); BILIRUBIN,TOTAL 0.5 MG/DL (0.2-1.0); BLOOD UREA NITROGEN 18 MG/DL (7-18); CARBON DIOXIDE LEVEL 28 MEQ/L (21-32); CHLORIDE LEVEL 106 MEQ/L (98-107); CREATININE FOR GFR 1.06 MG/DL (0.70-1.30); GLOMERULAR FILTRATION RATE > 60.0 (>49); GLUCOSE, FASTING 76 MG/DL (70-100); POTASSIUM SERUM 4.4 MEQ/L (3.5-5.1); SODIUM LEVEL 139 MEQ/L (136-145)
[2020-02-28 10:03] LABS: ERYTHROCYTE SEDIMENTATION RATE 3 mm/hr (0-20)
--- NOTE | 2020-02-28 20:54 | ECGEPIP ---
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
--- NOTE | 2020-03-06 10:37 | REP ---
CHEST X-RAY: 2-VIEWS HISTORY: Osteoarthritis of the right hip. COMPARISON: Radiographs from 08/11/2018. FINDINGS: The lungs are symmetrically aerated and clear. The pleural angles are sharp. Heart size is normal. Pulmonary vasculature is not increased. No significant bony abnormality is seen. The aorta is slightly tortuous. IMPRESSION: No active disease. MTDD
== END ==
LOC: M LAB 08:42
PROVIDERS: ATTEND Orthopaedic Surgery
DX: Z01.818 Encounter for other preprocedural examination (principal); M16.11 Unilateral primary osteoarthritis, right hip; I45.10 Unspecified right bundle-branch block; R94.31 Abnormal electrocardiogram [ECG] [EKG]

== ENCOUNTER → 2020-03-03 | Outpatient (CLI) | payer BC, OTHER | LOC: M LABSMTC 11:45 | PROVIDERS: ATTEND Anesthesiology | DX: Z01.812 Encounter for preprocedural laboratory examination (principal); Z20.828 Contact with and (suspected) exposure to other viral communicable diseases | CPT/HCPCS: C9803; U0003 ==

== ENCOUNTER 2020-03-08 07:27 | Inpatient (IN) | payer BC, OTHER ==
--- NOTE | 2020-03-07 09:58 | HPE ---
DATE OF ADMISSION: 03/08/2020 ATTENDING PHYSICIAN: Dr. Kiko Carlin. CHIEF COMPLAINT: Right hip pain and stiffness. HISTORY: Patient is a 65-year-old male with progressively worsening right hip pain and stiffness. He failed to improve with conservative measures. He continues to have symptoms with weightbearing activities and activities of daily living. He consented for an elective right total hip arthroplasty with Dr. Carlin for his continued symptoms. Medical optimization is pending with Dr. Will. CURRENT MEDICATIONS: * Lisinopril 20 mg daily. * Aspirin 81 mg daily. * Chlorthalidone 25 mg one-half tablet daily. * Cialis 5 mg daily. * Atorvastatin 20 mg daily. ALLERGIES: There are no known drug allergies. CHRONIC MEDICAL CONDITIONS: * Hypertension. * Hyperlipidemia. * Gastroesophageal reflux disease. * Erectile dysfunction. * Benign prostatic hypertrophy. * History of shingles. PAST SURGICAL HISTORY: * Colonoscopy. * Right knee arthroscopy. * Left total knee arthroplasty. * Right ankle tendinopathy repair. SOCIAL HISTORY: Patient is a former chewing tobacco user. Denies illicit drug use. Drinks alcohol socially. REVIEW OF SYSTEMS: Patient denies fevers, chills, nausea, vomiting, or diarrhea. Denies chest pain, shortness of breath, lightheadedness, dizziness, or headaches. He denies any abdominal pain. No recent upper respiratory or urinary tract infection symptoms. PHYSICAL EXAMINATION: GENERAL: Well-nourished, well-developed male in no apparent distress. He is alert, oriented, and cooperative. Mood and affect are appropriate. VITAL SIGNS: Blood pressure 132/63, respirations 13, heart rate 68, height 6 feet 1.5 inches, weight 244.8 pounds, temperature 97.1 degrees. NECK: Supple without lymphadenopathy. HEART: Regular rate and rhythm. LUNGS: Clear to auscultation bilaterally. Breathing is regular and nonlabored. ABDOMEN: Bowel sounds are present. Abdomen is soft and nontender to palpation. MUSCULOSKELETAL: The right hip exhibits no gross abnormalities. Tenderness to palpation along the right groin. The patient has good motion of the right hip. It is just painful most pronounced with internal rotation. Strength in the right lower extremity is 5/5. Calf is soft and nontender without evidence of DVT. He is neurovascularly intact distally. LABORATORY DATA: EKG shows sinus bradycardia with incomplete right bundle-branch block. Right hip x-ray is notable for end-stage degenerative changes. Prothrombin time 13.7, INR 1.03, PTT 26.3. Comprehensive metabolic profile shows fasting glucose 76, BUN 18, creatinine 1.06, GFR greater than 60. Sodium 139, potassium 4.4, chloride 106 carbon dioxide 28, anion decreased at 5, calcium 9.0, AST 18, ALT 25, alkaline phosphatase 81, total bilirubins 0.5, total proteins 7.0, albumin 3.5, albumin-globulin ratio 1.0. Complete blood count shows ESR 3, WBC 6.2, RBC 5.02, hemoglobin 15.3, hematocrit 46.6, platelets 231. IMPRESSION: Right hip osteoarthritis with x-rays notable for end stage degenerative changes. PLAN: Patient has consented for an elective right total hip arthroplasty with Dr. Carlin for his continued symptoms. Medical optimization is pending with Dr. Will. The patient is using his Hibiclens and Bactroban as directed. He will follow his primary care managers recommendations for how to take his daily medications. He stopped taking his daily aspirin a few days ago. CRISSY
[2020-03-08] VITALS (7 sets, daily range): BP systolic 106–132; BP diastolic 68–80
[~2020-03-08] VITALS: Ht 188 cm; Wt 111.1 kg
[~2020-03-08 07:27] MED LIST changes: +LR 1,000 ML IV ONE; -MS C15TA8 PO; +ceFAZolin SOD 2 GM in IV 1 EA IV ONE
[2020-03-08] MEDS ORDERED: fentaNYL 100 MCG/2 ML INJECTION (J3010) As Ordered ONE (08:13)
[2020-03-08] MEDS ORDERED: LIDOCAINE 2% 100MG/5ML SDV (FOR ANES.) As Ordered ONE (08:13)
[2020-03-08] MEDS ORDERED: MIDAZOLAM INJ 2MG/2ML VIAL (J2250 PER 1MG) As Ordered ONE (08:13)
[2020-03-08] MEDS ORDERED: propofoL 500 MG/50 ML VIAL As Ordered ONE (08:13)
[2020-03-08] MEDS ORDERED: ATORVASTATIN 20 MG TAB PO SCH (09:00)
[2020-03-08] MEDS ORDERED: lisinopriL 20 MG TAB PO SCH (09:00)
[2020-03-08] MEDS ORDERED: TRANEXAMIC ACID 100 MG/ML 10ML VIAL As Ordered ONE (09:33)
[2020-03-08] MEDS ORDERED: ceFAZolin 1GM VIAL (J0690 PER 500MG) As Ordered ONE (09:34)
[2020-03-08] MEDS ORDERED: EPINEPHrine INJ 1 MG/ML 1ML AMP As Ordered ONE (09:34)
[2020-03-08] MEDS ORDERED: BUPIVACAINE LIPOSOME/PF 1.3% 20ML VIAL (13.3MG/ML)(EXPAREL)(C9290 PER1MG) As Ordered ONE (09:34)
[2020-03-08] MEDS ORDERED: ACETAMINOPHEN 1000MG 100ML IV BTL (OFIRMEV) (J0131 PER 10MG) As Ordered ONE (10:31)
[2020-03-08] MEDS ORDERED: ePHEDrine SULFATE 25 MG/5 ML(5MG/ML) SYRINGE As Ordered ONE (10:50)
[2020-03-08] MEDS ORDERED: PHENYLephrine HCL 500 MCG/5 ML (100MCG/ML) SYRINGE (J2370) As Ordered ONE (10:50)
[2020-03-08] MEDS ORDERED: ONDANSETRON 4MG/2ML VIAL As Ordered ONE (10:51)
[2020-03-08] MEDS ORDERED: propofoL 200 MG/20 ML VIAL As Ordered ONE ×2 (11:10→11:24)
[2020-03-08] MEDS ORDERED: LR 1,000 ML IV SCH ×2 (12:15)
[2020-03-08] MEDS ORDERED: ACETAMINOPHEN TAB 650MG DOSE (2X325MG) PO PRN (12:15)
[2020-03-08] MEDS ORDERED: ONDANSETRON 4MG/2ML VIAL IV PRN ×2 (12:15)
[2020-03-08] MEDS ORDERED: MORPHINE 4 MG/ML 1ML VIAL/SYRINGE (J2270) IV PRN (12:15)
[2020-03-08] MEDS ORDERED: MORPHINE 2 MG/ML 1ML VIAL (J2270) IV PRN (12:15)
[2020-03-08] MEDS ORDERED: HYDROMORPHONE HCL 0.5 MG/ 0.5 ML SYRINGE (J1170 PER 1) IV PRN (12:15)
[2020-03-08] MEDS ORDERED: fentaNYL 100 MCG/2 ML INJECTION (J3010) IV PRN (12:15)
[2020-03-08] MEDS: oxyCODONE 5MG TAB PO PRN ×2 (12:27→12:57)
--- NOTE | 2020-03-08 12:40 | REPVR ---
PROCEDURE INFORMATION: Exam: XR Right Hip with Pelvis when Performed Exam date and time: 03/08/2020 12:01 PM Age: 65 years old Clinical indication: Condition or disease; Other: Post operative right total hip replacement; Prior surgery; Surgery date: Post-operative (0-2 days); Surgery type: RT total hip replacement; Additional info: Post op in pacu TECHNIQUE: Imaging protocol: XR Right hip with pelvis when performed. Views: 2 or 3 views. COMPARISON: No relevant prior studies available. FINDINGS: Bones/joints: Anatomic alignment of right hip arthroplasty. Soft tissues: Postoperative skin paty. IMPRESSION: Anatomic alignment of right hip arthroplasty. Electronically signed by: Cristhian Bolaños On 03/08/2020 12:40:20 PM
--- NOTE | 2020-03-08 13:31 | CR.PDOC ---
General Date of Consultation: Mar 08, 2020 Consultation Chief complaint: Presented to [facility] for an elective orthopedic procedure History of present illness: Patient is a 65-year-old male with past medical history of hypertension, dyslipidemia, history of shingles and GERD who presented to [facility] for an elective orthopedic procedure. Patient was scheduled for a total right hip arthroplasty with Dr. Carlin. His received outpatient medical clearance from his primary care provider Dr. Will. Patient did not require any cardiac clearanc e. Hospital service was contacted for medical management postoperatively. Patient denies any headache, nausea, vomiting, chest pain, chest breath, palpitations, abdominal pain consultation, diarrhea, or any discomfort with urination. Patient denies any recent fevers or chills. He reports his appetite is normal and denies any changes in his weight. Past Medical History: HTN DLP Hx of Shingles GERD Past Surgical History: Colonoscopy Right knee arthroscopy Left knee total arthroplasty Right ankle tendinopathy repair Right carpal tunnel surgery Allergies: See below Medications: See below Family History: - No history of malignancies Social History: - Denies the use of illicit drugs; patient reports that usually uses alcohol. 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 Review of Systems: 10 point review of systems complete, all negative otherwise stated in HPI Physical exam: - Vitals: BP [111/73], HR [66], RR [16], Sat [96%RA], Temp [97.1F] - General: Lying in bed, No acute distress, AAOx3 - HEENT: NC, AT - CVS: RRR, +S1S2 - Lungs: Fair air entry bilaterally, No wheezing / rales / rhonchi - Abdomen: Soft, Non-distended, Non-tender - Extremities: No lower extremity edema, No calf tenderness - Neuro: No focal motor or sensory deficit - Skin: No visible rashes Assessment and Plan: Elective total right hip arthroplasty (POD#0) - Patient was scheduled for an elective total hip arthroplasty with orthopedic surgery - Has received outpatient medical clearance from his primary care provider Dr. Will - Pain control, anticoagulation and physical therapy direction of orthopedic surgery HTN - Blood pressure remains well-controlled - c/w Lisinopril and Chlorthalidone with hold parameters DLP - c/w Atorvastatin Hx of Shingles - Patient denies any neuropathic pain GERD - Patient reports that this has been taken care of this an outpatient - Currently not on any medications DVT prophylaxis - as per orthopedic surgery Vital Signs/I&O Vital Signs Date Time Temp Pulse Resp B/P (MAP) Pulse Ox O2 Delivery O2 Flow Rate FiO2 03/08/20 13:16 50 18 110/74 (86) 99 Nasal Cannula 2 03/08/20 13:04 97 Allergies Coded Allergies: No Known Allergies (Unverified , 09/22/18) Home Medications Scheduled Aspirin (Aspirin EC) 81 Mg Tablet.dr, 81 MG PO DAILY for pain for 30 Days, #30 (Reported) Atorvastatin Calcium (Atorvastatin Calcium) 20 Mg Tablet, 20 MG PO DAILY, (Reported) Chlorthalidone (Chlorthalidone) 25 Mg Tablet, 12.5 MG PO DAILY, (Reported) Lisinopril (Lisinopril) 20 Mg Tablet, 20 MG PO DAILY, (Reported) Tadalafil (Cialis) 5 Mg Tablet, 5 MG PO DAILY, (Reported) BIBI WRIGHT MD Mar 08, 2020 13:31
[2020-03-08] MEDS: CHLORTHALIDONE 12.5MG PER 1/2 TABLET PO SCH (14:10)
--- NOTE | 2020-03-08 14:15 | IPN ---
DATE: 03/08/2020 SUBJECTIVE: The patient is seen and examined. He wished to go ahead with a right total hip arthroplasty. He is having severe pain. Preop clearance was obtained. He understands the nature of this, the risks of bleeding, infection, damage to nerves and vessels, persistent pain, wear, loosening, dislocation, leg length inequality, blood counts, medical problems, and among others. He wishes to proceed. CRISSY
[2020-03-08] MEDS: PERCOCET 5MG/325MG TAB PO PRN ×2 (14:42→20:48)
[2020-03-08] MEDS: CYCLOBENZAPRINE 10MG TABLET PO SCH ×2 (16:04→20:48)
[2020-03-08] MEDS: ceFAZolin SOD 2 GM in IV 1 EA IV SCH (18:29)
[2020-03-08] MEDS: ATORVASTATIN 20 MG TAB PO SCH (20:48)
[2020-03-08] MEDS: lisinopriL 20 MG TAB PO SCH (20:48)
[2020-03-09] VITALS (8 sets, daily range): BP systolic 105–124; BP diastolic 67–79; O2SAT 94
[2020-03-09] MEDS: ceFAZolin SOD 2 GM in IV 1 EA IV SCH (02:41)
[2020-03-09] MEDS: PERCOCET 5MG/325MG TAB PO PRN ×3 (02:42→16:00)
[2020-03-09] MEDS: CYCLOBENZAPRINE 10MG TABLET PO SCH ×3 (06:37→20:59)
[2020-03-09] MEDS ORDERED: XARE10TA PO (06:40)
[2020-03-09] MEDS ORDERED: PERC5TAB12 PO (06:40)
[2020-03-09] MEDS ORDERED: MS C15TA8 PO (06:40)
[2020-03-09 06:56] LABS: BASO # 0.1 10^3/uL (0.0-0.2); BASO % 0.7 % (0.0-1.0); EOS # 0.2 10^3/uL (0.0-0.5); EOS % 2.6 % (0.0-3.0); HEMATOCRIT 44.3 % (42.0-52.0); HEMOGLOBIN 14.7 g/dl (13.5-17.5); LYMPH # 0.9 10^3/uL (1.5-5.0); MEAN CORPUSCULAR HEMOGLOBIN 30.8 pg (27.0-33.0); MEAN CORPUSCULAR HGB CONC 33.2 g/dl (32.0-36.5); MEAN CORPUSCULAR VOLUME 92.9 fl (80.0-96.0); MONO # 1.2 10^3/uL (0.0-0.8); MONO % 12.9 % (0.0-5.0); NEUTROPHILS # 6.8 10^3/uL (1.5-8.5); NEUTROPHILS % 73.5 % (36.0-66.0); PLATELET COUNT, AUTOMATED 254 10^3/uL (150-450); RED BLOOD COUNT 4.77 10^6/uL (4.30-6.10); WHITE BLOOD COUNT 9.2 10^3/uL (4.0-10.0)
[2020-03-09 07:17] LABS: BLOOD UREA NITROGEN 12 MG/DL (7-18); CALCIUM LEVEL 8.4 MG/DL (8.8-10.2); CARBON DIOXIDE LEVEL 29 MEQ/L (21-32); CHLORIDE LEVEL 105 MEQ/L (98-107); CREATININE FOR GFR 0.94 MG/DL (0.70-1.30); GLOMERULAR FILTRATION RATE > 60.0 (>49); GLUCOSE, FASTING 107 MG/DL (70-100); MAGNESIUM LEVEL 1.9 MG/DL (1.8-2.4); SODIUM LEVEL 138 MEQ/L (136-145)
[2020-03-09] MEDS: MOM 30ML SUSPENSION UDC PO SCH (08:21)
[2020-03-09] MEDS: MIRALAX *UNIT DOSE* 17GM PACKET PO SCH (08:21)
[2020-03-09] MEDS ORDERED: FLUBLOK(EGG FREE)(QUAD)INFLUENZA VACC 0.5ML SYRINGE 18YRS & OLDER IM ONE (09:00)
[2020-03-09] MEDS: CHLORTHALIDONE 12.5MG PER 1/2 TABLET PO SCH (09:00)
--- NOTE | 2020-03-09 09:57 | IPNPDOC ---
Text Note Date of Service The patient was seen on 03/09/20. NOTE Subjective: Patient is a 65-year-old male with past medical history of hypertension, dyslipidemia, history of shingles and GERD who presented to [facility] for an elective orthopedic procedure. Patient was scheduled for a total right hip arthroplasty with Dr. Carlin. His received outpatient medical clearance from his primary care provider Dr. Will. Patient did not require any cardiac clearance. Hospital service was contacted for medical management postopera tively. Patient was seen and examined at the bedside. Patient reports that he had difficulty sleeping through the night. Denies any chest pain, sharp spelled palpitations. Denies any nausea, vomiting, abdominal pain, has not experience any bowel movements reported that he did not pass any flatus this morning. Objective: Vitals (See below) General: Lying in bed, appears comfortable, AAOx3 HEENT: NC, AT CVS: +S1S2 Lungs: Fair air entry b/l, -w/r/r Abdomen: Soft, ND, NT Extremities: - Edema, - Calf tenderness Assessment and plan: Elective total right hip arthroplasty (POD#1) - Patient was scheduled for an elective total hip arthroplasty with orthopedic surgery - Has received outpatient medical clearance from his primary care provider Dr. Will - Pain control, anticoagulation and physical therapy direction of orthopedic surgery HTN - Blood pressure is on lower limits of normal - c/w Lisinopril and Chlorthalidone with hold parameters; will be likely be held today DLP - c/w Atorvastatin Hx of Shingles - Patient denies any neuropathic pain GERD - Patient reports that this has been taken care of this an outpatient - Currently not on any medications DVT prophylaxis - as per orthopedic surgery Disposition: - Anticipate discharge within the next 24 hours VS,Tamarae, I+O VS, Tamarae, I+O Laboratory Tests 03/09/20 06:31 Vital Signs Date Time Temp Pulse Resp B/P (MAP) Pulse Ox O2 Delivery O2 Flow Rate FiO2 03/09/20 08:20 16 03/09/20 06:00 98.7 61 105/67 (80) 97 Nasal Cannula 2.0 I&O- Last 24 Hours up to 6 AM 03/09/20 06:00 Intake Total 5646 ml Output Total 2075 ml Balance 3571 ml BIBI WRIGHT MD Mar 09, 2020 09:57
--- NOTE | 2020-03-09 11:26 | RO ---
DATE OF OPERATION: 03/08/2020 PREOPERATIVE DIAGNOSIS: Right hip osteoarthritis. POSTOPERATIVE DIAGNOSIS: Right hip osteoarthritis. PROCEDURE: Right total hip arthroplasty using a Dryden size 7 standard offset with a 60 acetabular component, size 40 ceramic head, +1.5 neck. SURGEON: Kiko Carlin MD CORN HUSKER MACHINE OPERATOR: SHARIFA Villalpando ANESTHESIA: Spinal. ESTIMATED BLOOD LOSS: 200. COMPLICATIONS: None. INDICATIONS: This is a 65 year old with severe right hip pain. He wished to go ahead with surgical treatment. DESCRIPTION OF PROCEDURE: The patient was taken to the operating room and placed in the left lateral decubitus position on the [place] positioner after spinal anesthesia was induced. The right hip was prepped and draped in the usual sterile fashion. A timeout was performed. A longitudinal incision was made over the lateral aspect of the hip and sharp dissection was carried out down through subcutaneous tissue controlling hemostasis with the cautery. I then divided the fascia harjit and identified the abductor which had a partial pull off, particularly inferiorly, where it was avulsed off and there was some evidence of chronic bursitis. I then divided the anterior 40% of the abductor off and gradually exposed the femur and was able to dislocate without too much difficulty. I then used the canal-initiating reamer, the canal-finding reamer, the lateralizing reamer followed by sequentially reaming up to a size 7 reamer. This had good purchase. I then used a guide and made the neck cut at about three-quarters of a fingerbreadth up from the lesser trochanter, and removed the head which was severely arthritic. I then directed attention to the acetabulum. Soft tissue was removed with some difficulty around the acetabulum; it was a difficult visualization partly due to his musculature, and was able to get soft tissue removed from around the acetabulum. I then sequentially reamed up to size 59, which had good bleeding bone and good concentric reaming. I then impacted in the actual size 60 acetabular component in the appropriate amount of anteversion and horizontal tilt. There were no significant osteophytes that seemed to be a factor. I then placed the actual size 40 x 60 polyethylene, impacted this in place and made sure it was well seated. I directed our attention back to the femur, used the [place]is[place] cutter to remove some proximal bone and then sequentially broached up to a size 7, which had an excellent fit. I did have to use the calcar planer to smooth off proximally. There was a small gap medially which I eventually filled with a small piece of bone graft with the actual stem. I then trialed off this and the high offset and standard offset were used with a 1.5, 40 head and the 1.5, 40 with the standard offset seemed to be the most appropriate. It had good soft tissue tension, excellent stability in extension, external rotation, flexion, internal rotation with no impingement apparent. There was minimal shuck in full extension. Soft tissue tension was appropriate. I then removed the trial components. I had irrigated multiple times up to this point. I again irrigated the canal and impacted in the size 7 standard offset stem, Dryden, and put some bone graft medially as there was just a few millimeter gap medially and this filled it nicely. Stem was impacted down until it was seated. I then dried the taper and placed the 40 x 1.5 ceramic head, impacted it in place, reduced the hip and we put the hip through a range of motion with excellent stability in range of motion was noted with no impingement. I then placed the Exparel and TXA in the deep tissues. I repaired the minimus with #1 Vicryl suture after deep irrigation was performed. I then repaired the abductors with some difficulty with several stitches being placed, #1 Vicryl, and particularly inferiorly where the abductor had avulsed off. I had a difficult time getting a hold of this but I was able to get some good stitches in it and bring it back up on the femur. This did add a significant amount of time to the case. I again irrigated, repaired the fascia harjit with #1 Vicryl sutures. Fascia harjit was quite thick and I repaired this with 31 Vicryl and running STRATAFIX. The subcutaneous was closed with 2-0 Vicryl and the skin with paty. He was taken to the recovery room in stable condition. There were no known complications. The automotive service assistant was instrumental in holding retractors and assisting in reducing and dislocating the hip and assisting in wound closure. This is coded as an unusually difficult procedure because his musculature made it a much more difficult dissection and exposure, and due to the fact that his abductors were partially avulsed off which required an abductor repair that was more extensive during wound closure. Overall, this added a fair amount of time to the procedure. CRISSY
[2020-03-09] MEDS: MORPHINE 15 MG SA TAB PO SCH ×2 (13:24→21:00)
[2020-03-09] MEDS ORDERED: RIVAROXABAN 10 MG TAB (XARELTO) PO SCH (18:00)
[2020-03-09] MEDS: ATORVASTATIN 20 MG TAB PO SCH (20:59)
[2020-03-09] MEDS: lisinopriL 20 MG TAB PO SCH (21:00)
[2020-03-10] MEDS: PERCOCET 5MG/325MG TAB PO PRN ×2 (03:10→11:56)
[2020-03-10 04:01] VITALS: O2SAT 96
[2020-03-10 06:00] VITALS: BP 95/49
[2020-03-10] MEDS: CYCLOBENZAPRINE 10MG TABLET PO SCH (06:00)
[2020-03-10 06:02] LABS: BASO # 0.1 10^3/uL (0.0-0.2); BASO % 0.6 % (0.0-1.0); EOS # 0.3 10^3/uL (0.0-0.5); EOS % 2.5 % (0.0-3.0); HEMATOCRIT 42.6 % (42.0-52.0); LYMPH # 1.2 10^3/uL (1.5-5.0); LYMPH % 10.1 % (24.0-44.0); MEAN CORPUSCULAR HEMOGLOBIN 30.7 pg (27.0-33.0); MEAN CORPUSCULAR HGB CONC 32.9 g/dl (32.0-36.5); MEAN CORPUSCULAR VOLUME 93.4 fl (80.0-96.0); MONO # 1.5 10^3/uL (0.0-0.8); MONO % 12.8 % (0.0-5.0); NEUTROPHILS # 8.3 10^3/uL (1.5-8.5); NEUTROPHILS % 73.6 % (36.0-66.0); PLATELET COUNT, AUTOMATED 240 10^3/uL (150-450); RED BLOOD COUNT 4.56 10^6/uL (4.30-6.10); WHITE BLOOD COUNT 11.3 10^3/uL (4.0-10.0)
[2020-03-10 06:14] LABS: BLOOD UREA NITROGEN 17 MG/DL (7-18); CALCIUM LEVEL 8.4 MG/DL (8.8-10.2); CARBON DIOXIDE LEVEL 31 MEQ/L (21-32); CHLORIDE LEVEL 103 MEQ/L (98-107); CREATININE FOR GFR 1.14 MG/DL (0.70-1.30); GLOMERULAR FILTRATION RATE > 60.0 (>49); GLUCOSE, FASTING 108 MG/DL (70-100); MAGNESIUM LEVEL 2.1 MG/DL (1.8-2.4); POTASSIUM SERUM 4.2 MEQ/L (3.5-5.1); SODIUM LEVEL 139 MEQ/L (136-145)
[2020-03-10] MEDS ORDERED: KEFL500C17 PO (08:24)
[2020-03-10] MEDS: CHLORTHALIDONE 12.5MG PER 1/2 TABLET PO SCH (08:30)
[2020-03-10] MEDS ORDERED: CEPHALEXIN 500 MG CAP As Ordered ONE (08:31)
[2020-03-10] MEDS: MIRALAX *UNIT DOSE* 17GM PACKET PO SCH (08:35)
[2020-03-10] MEDS: MOM 30ML SUSPENSION UDC PO SCH (08:35)
[2020-03-10] MEDS: MORPHINE 15 MG SA TAB PO SCH (08:36)
[2020-03-10] MEDS ORDERED: CEPHALEXIN 500 MG CAP PO ONE (09:00)
--- NOTE | 2020-03-15 07:18 | DS ---
DATE OF ADMISSION: 03/08/2020 DATE OF DISCHARGE: 03/10/2020 ATTENDING PHYSICIAN: Dr. Kiko Carlin ADMITTING DIAGNOSIS: Right hip osteoarthritis. OTHER DIAGNOSES: 1. Hypertension. 2. Hyperlipidemia. 3. Gastroesophageal reflux disease. 4. Erectile dysfunction. 5. Benign prostatic hypertrophy. DISCHARGE DIAGNOSIS: Right hip osteoarthritis, status post right total hip arthroplasty. HISTORY: Patient is a 65-year-old male who had progressively worsening right hip pain and stiffness. He failed to improve with conservative measures. He continued to have symptoms with weightbearing activities and activities of daily living. He consented for an elective right total hip arthroplasty with Dr. Carlin for his continued symptoms. OPERATION PERFORMED: Right total hip arthroplasty. HOSPITAL COURSE: The patient underwent a right total hip arthroplasty under spinal anesthesia, which was uneventful. His hospital course was without complication, and he was up with physical therapy per their protocol, weightbearing as tolerated on the right lower extremity. Patient was discharged on oral pain medications and will resume his preoperative medications and diet. Patient will use his thromboembolic deterrent stockings and take his anticoagulant postoperatively to prevent deep venous thrombosis. Patient will followup in our office in 12-14 days for a wound check and staple removal. He is encouraged to contact our office sooner if there is any increase in pain, redness, drainage, numbness or tingling in the extremity, fever greater than 101 degrees, or any other concerns. Please see medical records for additional details. saud Gold [facility]
== END 2020-03-10 12:30 | disposition home or self-care (01) | DRG 301 ==
LOC: EEVIPCON 07:27 → M OR 07:27 → M MS5PR 13:30
PROVIDERS: ADMIT Orthopaedic Surgery; ATTEND Orthopaedic Surgery
PROC: 0SR904Z Replacement of Right Hip Joint with Ceramic on Polyethylene Synthetic Substitute, Open Approach (ICD-10-PCS; principal; 2020-03-08 09:00)
DX: M16.11 Unilateral primary osteoarthritis, right hip (principal); I10 Essential (primary) hypertension; E78.5 Hyperlipidemia, unspecified; K21.9 Gastro-esophageal reflux disease without esophagitis; N52.9 Male erectile dysfunction, unspecified; N40.0 Benign prostatic hyperplasia without lower urinary tract symptoms; Z96.652 Presence of left artificial knee joint; Z87.891 Personal history of nicotine dependence

== ENCOUNTER → 2020-12-15 | Outpatient (REF) | payer OTHER ==
[~2020-12-15] MED LIST changes: -LISI-538 PO; +LISI20TA33 PO; -LR 1,000 ML IV ONE; +MS C15TA8 PO; -ceFAZolin SOD 2 GM in IV 1 EA IV ONE
[2020-12-15 11:53] LABS: BASO # 0.1 10^3/uL (0.0-0.2); BASO % 1.2 % (0.0-1.0); EOS # 0.2 10^3/uL (0.0-0.5); EOS % 3.2 % (0.0-3.0); HEMATOCRIT 47.9 % (42.0-52.0); HEMOGLOBIN 15.6 g/dl (13.5-17.5); LYMPH # 1.6 10^3/uL (1.5-5.0); LYMPH % 22.8 % (24.0-44.0); MEAN CORPUSCULAR HEMOGLOBIN 30.4 pg (27.0-33.0); MEAN CORPUSCULAR HGB CONC 32.6 g/dl (32.0-36.5); MEAN CORPUSCULAR VOLUME 93.2 fl (80.0-96.0); MONO # 0.8 10^3/uL (0.0-0.8); MONO % 11.5 % (2.0-8.0); NEUTROPHILS # 4.2 10^3/uL (1.5-8.5); PLATELET COUNT, AUTOMATED 250 10^3/uL (150-450); RED BLOOD COUNT 5.14 10^6/uL (4.30-6.10); WHITE BLOOD COUNT 6.9 10^3/uL (4.0-10.0)
[2020-12-15 12:31] LABS: ALBUMIN 3.4 GM/DL (3.2-5.2); ALT/SGPT 30 U/L (12-78); BILIRUBIN,TOTAL 0.4 MG/DL (0.2-1.0); BLOOD UREA NITROGEN 21 MG/DL (7-18); CARBON DIOXIDE LEVEL 31 MEQ/L (21-32); CHLORIDE LEVEL 105 MEQ/L (98-107); CHOLESTEROL LEVEL 186 MG/DL (<200); CHOLESTEROL RISK RATIO 2.818 (<5); CREATININE FOR GFR 0.94 MG/DL (0.70-1.30); FREE T4 0.84 NG/DL (0.76-1.46); GLOMERULAR FILTRATION RATE > 60.0 (>49); GLUCOSE, FASTING 97 MG/DL (70-100); HDL CHOLESTEROL 66 MG/DL (>40); LDL CHOLESTEROL 107 MG/DL (<100); NON-HDL-C 120 MG/DL; POTASSIUM SERUM 4.7 MEQ/L (3.5-5.1); SODIUM LEVEL 140 MEQ/L (136-145); TOTAL PROTEIN 6.6 GM/DL (6.4-8.2); TRIGLYCERIDES LEVEL 65 MG/DL (<150)
== END ==
LOC: M SFHCCLAY 08:52
PROVIDERS: ATTEND Nurse Practitioner Family
DX: I10 Essential (primary) hypertension (principal); E78.5 Hyperlipidemia, unspecified; R79.89 Other specified abnormal findings of blood chemistry; N40.1 Benign prostatic hyperplasia with lower urinary tract symptoms
CPT/HCPCS: 80053; 80061; 84439; 84443; 85025; G0103

== ENCOUNTER → 2021-12-25 | Outpatient (REF) | payer MEDICARE, OTHER ==
[2021-12-25 11:16] LABS: BASO # 0.1 10^3/uL (0.0-0.2); BASO % 1.2 % (0.0-1.0); EOS # 0.1 10^3/uL (0.0-0.5); EOS % 1.9 % (0.0-3.0); HEMATOCRIT 48.9 % (42.0-52.0); LYMPH # 1.4 10^3/uL (1.5-5.0); LYMPH % 21.5 % (24.0-44.0); MEAN CORPUSCULAR HEMOGLOBIN 30.1 pg (27.0-33.0); MEAN CORPUSCULAR HGB CONC 32.7 g/dl (32.0-36.5); MEAN CORPUSCULAR VOLUME 92.1 fl (80.0-96.0); MONO # 0.7 10^3/uL (0.0-0.8); MONO % 11.4 % (2.0-8.0); NEUTROPHILS # 4.1 10^3/uL (1.5-8.5); NEUTROPHILS % 63.7 % (36.0-66.0); PLATELET COUNT, AUTOMATED 262 10^3/uL (150-450); RED BLOOD COUNT 5.31 10^6/uL (4.30-6.10); WHITE BLOOD COUNT 6.4 10^3/uL (4.0-10.0)
[2021-12-25 12:53] LABS: ALBUMIN 3.8 GM/DL (3.2-5.2); ALT/SGPT 22 U/L (12-78); BILIRUBIN,TOTAL 0.8 MG/DL (0.2-1.0); BLOOD UREA NITROGEN 18 MG/DL (7-18); CALCIUM LEVEL 9.8 MG/DL (8.8-10.2); CARBON DIOXIDE LEVEL 28 MEQ/L (21-32); CHLORIDE LEVEL 107 MEQ/L (98-107); CHOLESTEROL LEVEL 180 MG/DL (<200); CHOLESTEROL RISK RATIO 2.608 (<5); CREATININE FOR GFR 0.95 MG/DL (0.70-1.30); FREE T4 0.82 NG/DL (0.76-1.46); GLOMERULAR FILTRATION RATE > 60.0 (>49); GLUCOSE, FASTING 85 MG/DL (70-100); HDL CHOLESTEROL 69 MG/DL (>40); LDL CHOLESTEROL 98 MG/DL (<100); NON-HDL-C 111 MG/DL; POTASSIUM SERUM 4.4 MEQ/L (3.5-5.1); SODIUM LEVEL 140 MEQ/L (136-145); TOTAL PROTEIN 6.8 GM/DL (6.4-8.2); TRIGLYCERIDES LEVEL 67 MG/DL (<150)
== END ==
LOC: M SFHCCLAY 09:08
PROVIDERS: ATTEND Nurse Practitioner Family
DX: I10 Essential (primary) hypertension (principal); N40.1 Benign prostatic hyperplasia with lower urinary tract symptoms; N52.9 Male erectile dysfunction, unspecified; E78.5 Hyperlipidemia, unspecified; G47.30 Sleep apnea, unspecified; Z13.1 Encounter for screening for diabetes mellitus
CPT/HCPCS: 80053; 80061; 84402; 84403; 84439; 84443; 85025; G0103

== ENCOUNTER → 2023-01-20 | Outpatient (REF) | payer MEDICARE, OTHER ==
[2023-01-20 11:41] LABS: BASO # 0.1 10^3/uL (0.0-0.2); BASO % 1.4 % (0.0-1.0); EOS # 0.2 10^3/uL (0.0-0.5); EOS % 2.4 % (0.0-3.0); HEMATOCRIT 46.2 % (42.0-52.0); HEMOGLOBIN 14.9 g/dl (13.5-17.5); LYMPH # 1.3 10^3/uL (1.5-5.0); LYMPH % 19.7 % (24.0-44.0); MEAN CORPUSCULAR HEMOGLOBIN 30.7 pg (27.0-33.0); MEAN CORPUSCULAR HGB CONC 32.3 g/dl (32.0-36.5); MEAN CORPUSCULAR VOLUME 95.1 fl (80.0-96.0); MONO # 0.8 10^3/uL (0.0-0.8); MONO % 13.1 % (2.0-8.0); NEUTROPHILS % 63.1 % (36.0-66.0); PLATELET COUNT, AUTOMATED 220 10^3/uL (150-450); RED BLOOD COUNT 4.86 10^6/uL (4.30-6.10); WHITE BLOOD COUNT 6.4 10^3/uL (4.0-10.0)
[2023-01-20 11:53] LABS: ALBUMIN 3.5 G/DL (3.2-5.2); ALKALINE PHOSPHATASE 70 U/L (46-116); ALT/SGPT 21 U/L (7.0-40); AST/SGOT 14 U/L (<34); BILIRUBIN,TOTAL 0.4 MG/DL (0.3-1.2); BLOOD UREA NITROGEN 18 MG/DL (9-23); CALCIUM LEVEL 8.8 MG/DL (8.3-10.6); CARBON DIOXIDE LEVEL 29 MMOL/L (20-31); CHLORIDE LEVEL 108 MMOL/L (98-107); CHOLESTEROL LEVEL 154 MG/DL (<200); CHOLESTEROL RISK RATIO 2.51 (<5); CREATININE FOR GFR 0.93 MG/DL (0.70-1.30); FREE T4 0.88 NG/DL (0.89-1.76); GLOMERULAR FILTRATION RATE > 60.0 (>49); GLUCOSE, FASTING 94 MG/DL (74-106); HDL CHOLESTEROL 61.2 MG/DL (>40); LDL CHOLESTEROL 81.6 MG/DL (<100); NON-HDL-C 92.8 MG/DL; POTASSIUM SERUM 4.4 MMOL/L (3.5-5.1); SODIUM LEVEL 141 MMOL/L (136-145); THYROID STIMULATING HORMONE 4.202 uIU/ML (0.55-4.78); TOTAL PROTEIN 6.5 G/DL (5.7-8.2); TRIGLYCERIDES LEVEL 56 MG/DL (<150)
[2023-01-20 12:29] LABS: HEMOGLOBIN A1c 5.5 % (4.0-6.0)
== END ==
LOC: M SFHCCLAY 07:24
PROVIDERS: ATTEND Nurse Practitioner Family
DX: I10 Essential (primary) hypertension (principal); N40.1 Benign prostatic hyperplasia with lower urinary tract symptoms; N52.9 Male erectile dysfunction, unspecified; E78.5 Hyperlipidemia, unspecified; G47.30 Sleep apnea, unspecified; Z13.1 Encounter for screening for diabetes mellitus; Z79.899 Other long term (current) drug therapy

== ENCOUNTER → 2023-08-21 | Outpatient (CLI) | payer MEDICARE, BC ==
[2023-08-21 11:36] LABS: HEMATOCRIT 48.9 % (42.0-52.0); HEMOGLOBIN 15.8 g/dl (13.5-17.5); MEAN CORPUSCULAR HEMOGLOBIN 30.4 pg (27.0-33.0); MEAN CORPUSCULAR HGB CONC 32.3 g/dl (32.0-36.5); MEAN CORPUSCULAR VOLUME 94.2 fl (80.0-96.0); PLATELET COUNT, AUTOMATED 238 10^3/uL (150-450); RED BLOOD COUNT 5.19 10^6/uL (4.30-6.10); WHITE BLOOD COUNT 5.8 10^3/uL (4.0-10.0)
[2023-08-21 11:37] LABS: ALBUMIN 3.7 G/DL (3.2-5.2); ALKALINE PHOSPHATASE 82 U/L (46-116); ALT/SGPT 23 U/L (7.0-40); AST/SGOT 19 U/L (<34); BILIRUBIN,TOTAL 0.6 MG/DL (0.3-1.2); BLOOD UREA NITROGEN 12 MG/DL (9-23); CALCIUM LEVEL 9.3 MG/DL (8.3-10.6); CARBON DIOXIDE LEVEL 32 MMOL/L (20-31); CHLORIDE LEVEL 105 MMOL/L (98-107); CREATININE FOR GFR 0.94 MG/DL (0.70-1.30); GLOMERULAR FILTRATION RATE > 60.0 (>49); GLUCOSE, FASTING 94 MG/DL (74-106); POTASSIUM SERUM 4.8 MMOL/L (3.5-5.1); SODIUM LEVEL 141 MMOL/L (136-145); TOTAL PROTEIN 6.7 G/DL (5.7-8.2)
[2023-08-21 11:46] LABS: ERYTHROCYTE SEDIMENTATION RATE 10 mm/hr (0-20); INR 1.04; PROTHROMBIN TIME 13.3 SECONDS (12.5-14.5)
== END ==
LOC: M CLY 08:20
PROVIDERS: ATTEND Orthopaedic Surgery
DX: Z01.818 Encounter for other preprocedural examination (principal); M17.11 Unilateral primary osteoarthritis, right knee; Z79.01 Long term (current) use of anticoagulants

== ENCOUNTER → 2023-09-26 | Outpatient (REF) | payer MEDICARE, BC ==
[2023-09-26 12:00] LABS: HEMOGLOBIN 15.9 g/dl (13.5-17.5); MEAN CORPUSCULAR HEMOGLOBIN 31.1 pg (27.0-33.0); MEAN CORPUSCULAR HGB CONC 33.1 g/dl (32.0-36.5); MEAN CORPUSCULAR VOLUME 93.8 fl (80.0-96.0); PLATELET COUNT, AUTOMATED 249 10^3/uL (150-450); RED BLOOD COUNT 5.12 10^6/uL (4.30-6.10); WHITE BLOOD COUNT 6.7 10^3/uL (4.0-10.0)
[2023-09-26 12:06] LABS: ALBUMIN 3.4 G/DL (3.2-5.2); ALKALINE PHOSPHATASE 82 U/L (46-116); ALT/SGPT 23 U/L (7.0-40); AST/SGOT 22 U/L (<34); BILIRUBIN,TOTAL 0.5 MG/DL (0.3-1.2); BLOOD UREA NITROGEN 15 MG/DL (9-23); CARBON DIOXIDE LEVEL 29 MMOL/L (20-31); CHLORIDE LEVEL 107 MMOL/L (98-107); CREATININE FOR GFR 0.94 MG/DL (0.70-1.30); GLOMERULAR FILTRATION RATE > 60.0 (>49); GLUCOSE, FASTING 115 MG/DL (74-106); POTASSIUM SERUM 4.8 MMOL/L (3.5-5.1); SODIUM LEVEL 140 MMOL/L (136-145); TOTAL PROTEIN 6.6 G/DL (5.7-8.2)
[2023-09-26 12:10] LABS: INR 1.07; PROTHROMBIN TIME 13.6 SECONDS (12.5-14.5)
[2023-09-26 12:22] LABS: ERYTHROCYTE SEDIMENTATION RATE 15 mm/hr (0-20)
== END ==
LOC: M LABDRAWC 11:26
PROVIDERS: ATTEND Orthopaedic Surgery
DX: Z01.818 Encounter for other preprocedural examination (principal); M17.11 Unilateral primary osteoarthritis, right knee; Z79.01 Long term (current) use of anticoagulants

== ENCOUNTER → 2024-01-27 | Outpatient (REF) | payer MEDICARE, BC ==
[2024-01-27 17:55] LABS: BASO # 0.1 10^3/uL (0.0-0.2); BASO % 1.2 % (0.0-1.0); EOS # 0.1 10^3/uL (0.0-0.5); EOS % 1.9 % (0.0-3.0); HEMATOCRIT 45.3 % (42.0-52.0); HEMOGLOBIN 14.2 g/dl (13.5-17.5); LYMPH # 1.3 10^3/uL (1.5-5.0); LYMPH % 16.7 % (24.0-44.0); MEAN CORPUSCULAR HEMOGLOBIN 28.6 pg (27.0-33.0); MEAN CORPUSCULAR HGB CONC 31.3 g/dl (32.0-36.5); MEAN CORPUSCULAR VOLUME 91.3 fl (80.0-96.0); MONO # 0.9 10^3/uL (0.0-0.8); MONO % 11.5 % (2.0-8.0); NEUTROPHILS # 5.2 10^3/uL (1.5-8.5); NEUTROPHILS % 68.4 % (36.0-66.0); PLATELET COUNT, AUTOMATED 297 10^3/uL (150-450); RED BLOOD COUNT 4.96 10^6/uL (4.30-6.10); WHITE BLOOD COUNT 7.6 10^3/uL (4.0-10.0)
[2024-01-27 18:00] LABS: HEMOGLOBIN A1c 5.6 % (4.0-6.0)
[2024-01-27 18:24] LABS: ALBUMIN 3.5 G/DL (3.2-5.2); ALKALINE PHOSPHATASE 95 U/L (46-116); ALT/SGPT 19 U/L (7.0-40); AST/SGOT 18 U/L (<34); BILIRUBIN,TOTAL 0.5 MG/DL (0.3-1.2); BLOOD UREA NITROGEN 19 MG/DL (9-23); CALCIUM LEVEL 9.2 MG/DL (8.3-10.6); CARBON DIOXIDE LEVEL 29 MMOL/L (20-31); CHLORIDE LEVEL 105 MMOL/L (98-107); CHOLESTEROL LEVEL 162 MG/DL (<200); CHOLESTEROL RISK RATIO 2.82 (<5); CREATININE FOR GFR 1.04 MG/DL (0.70-1.30); FREE T4 1.11 NG/DL (0.89-1.76); GLOMERULAR FILTRATION RATE > 60.0 (>49); GLUCOSE, FASTING 85 MG/DL (74-106); HDL CHOLESTEROL 57.4 MG/DL (>40); NON-HDL-C 104.6 MG/DL; POTASSIUM SERUM 5.6 MMOL/L (3.5-5.1); PSA SCREENING 0.96 NG/ML (< 4.00); SODIUM LEVEL 138 MMOL/L (136-145); THYROID STIMULATING HORMONE 4.051 uIU/ML (0.55-4.78); TOTAL PROTEIN 6.9 G/DL (5.7-8.2); TRIGLYCERIDES LEVEL 63 MG/DL (<150)
== END ==
LOC: M SFHCCLAY 09:24
PROVIDERS: ATTEND Nurse Practitioner Family
DX: I10 Essential (primary) hypertension (principal); Z13.1 Encounter for screening for diabetes mellitus; N52.9 Male erectile dysfunction, unspecified; N40.1 Benign prostatic hyperplasia with lower urinary tract symptoms; E78.5 Hyperlipidemia, unspecified; G47.30 Sleep apnea, unspecified; Z12.5 Encounter for screening for malignant neoplasm of prostate

== ENCOUNTER → 2024-08-27 | Outpatient (CLI) | payer MEDICARE, BC | LOC: M WHC 12:18 | PROVIDERS: ATTEND Student in an Organized Health Care Education/Training Program | DX: M79.604 Pain in right leg (principal) ==

== ENCOUNTER → 2025-01-28 | Outpatient (REF) | payer MEDICARE, BC ==
[2025-01-28 12:47] LABS: ALT/SGPT 15 U/L (7.0-40); AST/SGOT 14 U/L (<34); CALCIUM LEVEL 9.3 MG/DL (8.3-10.6); CARBON DIOXIDE LEVEL 29 MMOL/L (20-31); CHLORIDE LEVEL 105 MMOL/L (98-107); CHOLESTEROL LEVEL 183 MG/DL (<200); CHOLESTEROL RISK RATIO 2.48 (<5); CREATININE FOR GFR 0.92 MG/DL (0.70-1.30); GLOMERULAR FILTRATION RATE > 90.0 (>49); LDL CHOLESTEROL 98.7 MG/DL (<100); NON-HDL-C 109.5 MG/DL; POTASSIUM SERUM 4.8 MMOL/L (3.5-5.1); PSA SCREENING 1.39 NG/ML (< 4.00); SODIUM LEVEL 141 MMOL/L (136-145); TRIGLYCERIDES LEVEL 54 MG/DL (<150)
[2025-01-28 12:48] LABS: FREE T4 1.09 NG/DL (0.89-1.76)
[2025-01-28 12:50] LABS: BASO # 0.1 10^3/uL (0.0-0.2); BASO % 1.2 % (0.0-1.0); EOS # 0.1 10^3/uL (0.0-0.5); EOS % 1.0 % (0.0-3.0); LYMPH # 1.5 10^3/uL (1.5-5.0); LYMPH % 18.7 % (24.0-44.0); MONO # 0.9 10^3/uL (0.0-0.8); MONO % 10.9 % (2.0-8.0); NEUTROPHILS # 5.5 10^3/uL (1.5-8.5); NEUTROPHILS % 67.8 % (36.0-66.0); PLATELET COUNT, AUTOMATED 284 10^3/uL (150-450)
[2025-01-28 13:00] LABS: ESTIMATED AVERAGE GLUCOSE 120.0 MG/DL (60-110)
== END ==
LOC: M SFHCCLAY 07:02
PROVIDERS: ATTEND Nurse Practitioner Family
DX: N52.9 Male erectile dysfunction, unspecified (principal); Z13.1 Encounter for screening for diabetes mellitus; N40.1 Benign prostatic hyperplasia with lower urinary tract symptoms; I10 Essential (primary) hypertension; E78.5 Hyperlipidemia, unspecified; G47.30 Sleep apnea, unspecified; Z12.5 Encounter for screening for malignant neoplasm of prostate
CPT/HCPCS: 80053; 80061; 83036; 84439; 84443; 85025; G0103

== ENCOUNTER → 2025-03-09 | Outpatient (REF) | payer MEDICARE, BC ==
[2025-03-09 12:50] LABS: ALT/SGPT 17.0 U/L (7.0-40); AST/SGOT 16.0 U/L (<34); CALCIUM LEVEL 9.1 MG/DL (8.3-10.6); CARBON DIOXIDE LEVEL 31.0 MMOL/L (20-31); CHLORIDE LEVEL 104.0 MMOL/L (98-107); CREATININE FOR GFR 1.0 MG/DL (0.70-1.30); GLOMERULAR FILTRATION RATE 82.0 (>49); POTASSIUM SERUM 4.6 MMOL/L (3.5-5.1); SODIUM LEVEL 144.0 MMOL/L (136-145)
== END ==
LOC: M SFHCCLAY 08:17
PROVIDERS: ATTEND Nurse Practitioner Family
DX: B35.1 Tinea unguium (principal)